=== PATIENT | female | born 1975 | race Hispanic/Latino ===

== ENCOUNTER 2017-11-05 15:02 | Emergency (ER) | payer BC ==
[~2017-11-05] VITALS: Ht 165.1 cm; Wt 90.7 kg
[2017-11-05 15:52] LABS: BASOPHILS % 0.3 % (0.0-1.0); EOSINOPHILS # (AUTO) 0.1 (0.0-0.4); EOSINOPHILS % 2.3 % (0.0-6.0); HEMOGLOBIN 12.8 g/dL (12.0-16.0); LYMPHOCYTES # (AUTO) 0.9 (1.0-3.2); LYMPHOCYTES % 27.6 % (18.0-39.1); MEAN CORPUSCULAR HGB CONC 34.6 g/dL (31-35); MEAN CORPUSCULAR VOLUME 83.9 fL (81-99); MONOCYTES # (AUTO) 0.5 (0.2-0.8); MONOCYTES % 13.5 % (4.4-11.3); NEUTROPHILS # (AUTO) 1.9 (2.1-6.9); PLATELET COUNT 245 x10e3/uL (140-360); RED BLOOD COUNT 4.41 x10e6/uL (3.6-5.1); RED CELL DISTRIBUTION WIDTH 12.4 % (11.7-14.4)
[2017-11-05 16:07] LABS: ALANINE AMINOTRANSFERASE 51 IU/L (0-55); ALBUMIN 3.3 g/dL (3.5-5.0); ALBUMIN/GLOBULIN RATIO 0.6 (0.8-2.0); ALKALINE PHOSPHATASE 111 IU/L (40-150); ANION GAP 9.7 mmol/L (8-16); BLOOD UREA NITROGEN 9 mg/dL (7-26); BUN/CREATININE RATIO 13 (6-25); CALCIUM 9.1 mg/dL (8.4-10.2); CARBON DIOXIDE 24 mmol/L (22-29); CHLORIDE 107 mmol/L (98-107); CREATININE, SERUM 0.68 mg/dL (0.57-1.11); EST GLOMERULAR FILTRATION RATE > 60 ML/MIN (60-); GLUCOSE 95 mg/dL (74-118); POTASSIUM 3.7 mmol/L (3.5-5.1); SODIUM 137 mmol/L (136-145)
[2017-11-05 16:25] LABS: CLARITY,URINE CLEAR (CLEAR); COLOR,URINE YELLOW (YELLOW)
[2017-11-05 16:26] LABS: BILIRUBIN,URINE NEGATIVE (NEGATIVE); KETONES,URINE NEGATIVE (NEGATIVE); LEUKOCYTE ESTERASE ,URINE NEGATIVE (NEGATIVE); NITRITE,URINE NEGATIVE (NEGATIVE); PROTEIN,URINE DIPSTICK NEGATIVE (NEGATIVE); URINE UROBILINOGEN 1 mg/dL (0.2 - 1)
[2017-11-05 16:37] LABS: BACTERIA,URINE FEW /HPF; EPITHELIAL CELLS,URINE FEW /LPF
--- NOTE | 2017-11-05 17:43 | Diagnostic Imaging Report ---
PROCEDURE:PELVIC DOPPLER US COMPARISON:None. INDICATIONS:dub, r/o left ovarian torsion CONCLUSION: Please refer to transvaginal ultrasound performed at the same date and time for full dictated report. Eben Villeda M.D. Dictated by: Eben Villeda M.D. on 11/05/2017 at 17:45 Electronically approved by: Eben Villeda M.D. on 11/05/2017 at 17:45
--- NOTE | 2017-11-05 17:43 | Diagnostic Imaging Report ---
PROCEDURE:TRANSVAGINAL ULTRASOUND COMPARISON:None. INDICATIONS:dub, r/o left ovarian torsion TECHNIQUE: Grayscale transverse and sagittal transabdominal and transvaginal images were obtained of the pelvis. Transvaginal imaging was medically necessary to better evaluate the endometrium. FINDINGS: 42-year-old female patient G4, with stated LMP 10/07/2017 UTERUS: 8.9 x 5.1 x 5.4 cm. Heterogeneous echotexture. No focal lesions are identified. Multiple anechoic nabothian cysts are noted in the cervix. ENDOMETRIUM: 0.4 cm. Homogeneous echogenicity, without focal thickening. RIGHT OVARY: 2.7 x 2.0 x 1.6 cm. No focal lesions. LEFT OVARY: 3.4 x 2.0 x 2.9 cm. 2.1 x 1.3 x 2.1 cm cystic anechoic lesion, likely represent a dominant follicle. A 1.7 x 1.1 x 1.3 cm cystic, anechoic lesion likely represents a follicle. Normal arterial and venous flow is documented in both ovaries. There is no free fluid within the pelvis. No adnexal masses. CONCLUSION: 1. Normal arterial and venous flow is documented in both ovaries, with low likelihood of ovarian torsion. 2. Heterogeneous echotexture of the uterus. This may reflect underlying adenomyosis. Contrast enhanced MRI of the pelvis may be obtained for further evaluation, if clinically indicated. 3. Otherwise, essentially unremarkable exam. Eben Villeda M.D. Dictated by: Eben Villeda M.D. on 11/05/2017 at 17:45 Electronically approved by: Eben Villeda M.D. on 11/05/2017 at 17:45
[2017-11-05 18:32] VITALS: BP 168/105
== END 2017-11-05 18:35 | disposition home or self-care (01) ==
LOC: ER 15:02
DX: N93.8 Other specified abnormal uterine and vaginal bleeding (principal); R10.32 Left lower quadrant pain
CPT/HCPCS: 36415; 76830; 80053; 81001; 84702; 85025; 87086; 93976; 99284